=== PATIENT | male | born 1990 | race Caucasian/White ===

== ENCOUNTER 2024-03-20 16:19 | Emergency (ER) | payer OTHER, SELFPAY ==
[2024-03-20] MEDS ORDERED: Morphine 4 MG/ML VIAL ONE ×2 (16:34→18:12)
[2024-03-20] MEDS ORDERED: traMADol HCl 50 MG TAB ONE (16:34)
[2024-03-20] MEDS ORDERED: Boostrix 0.5 ML (Tdap) VIAL (>/=7 yrs of age) ONE (16:35)
[2024-03-20] MEDS ORDERED: Lidocaine 1% PF 5 ML VIAL ONE (17:02)
[2024-03-20] MEDS ORDERED: Amoxicillin/Potassium Clav 875 MG TAB ONE (18:12)
== END 2024-03-20 18:26 | disposition home or self-care (01) ==
LOC: BURERS 16:19
DX: S41.151A Open bite of right upper arm, initial encounter (principal); S41.111A Laceration without foreign body of right upper arm, initial encounter; F17.210 Nicotine dependence, cigarettes, uncomplicated; W54.0XXA Bitten by dog, initial encounter
CPT/HCPCS: 12032; 90715; 96374; 96376; J2270

== ENCOUNTER 2024-07-10 02:29 | Emergency (ER) | payer OTHER ==
[2024-07-10 02:51] LABS: #Basophils 0.1 thou/uL (0.0-0.2); #Eosinophils 0.2 thou/uL (0.0-0.7); #Monocytes 0.7 thou/uL (0.11-0.59); #Neutrophils 5.6 thou/uL (1.40-6.50); %Basophils 0.9 % (0.0-1.0); %Eosinophils 2.5 % (0.0-10.0); %Lymphocytes 23.1 % (21.0-51.0); %Monocytes 8.3 % (0.0-10.0); %Neutrophils 65.2 % (42.0-75.0); Hematocrit 37.8 % (42.0-52.0); Hemoglobin 12.7 g/dL (14.0-18.0); Mean Corpuscular HGB CONC 33.6 g/dL (32.0-36.0); Mean Corpuscular Hemoglobin 27.8 pg (27.0-31.0); Mean Corpuscular Volume 82.8 fl (78.0-98.0); Mean Platelet Volume 7.7 fL (7.4-10.4); Platelet Count 175 10x3/uL (130-400); RBC Distribution Width 10.2 % (11.5-14.5); Red Blood Cell (RBC) Count 4.56 mill/uL (4.70-6.10); White Blood Cell (WBC) Count 8.5 10x3/uL (4.8-10.8)
[2024-07-10 02:59] LABS: INR-International Normal Ratio 1.1; Prothrombin Time 13.8 sec (12.0-14.7)
[2024-07-10] MEDS ORDERED: Ketamine 50 MG/ML (10ML VIAL) ONE (03:04)
[2024-07-10 03:08] LABS: ALT (SGPT) 18 U/L (8-55); AST (SGOT) 20 U/L (5-34); Albumin 3.5 g/dL (3.5-5.0); Alkaline Phosphatase 60 U/L (40-110); Anion Gap 10 mmol/L (10-20); BUN (Urea Nitrogen) 23 mg/dL (8.9-20.6); Bilirubin, Total 0.3 mg/dL (0.2-1.2); Calc. Creatinine Clearance 0 mL/min (70-130); Calcium 8.4 mg/dL (7.8-10.44); Carbon Dioxide 26 mmol/L (22-29); Chloride 108 mmol/L (98-107); Estimated GFR 92; Globulin 2.5 g/dL (2.4-3.5); Glucose 118 mg/dL (70-105); Potassium 3.3 mmol/L (3.5-5.1); Sodium 141 mmol/L (136-145)
[2024-07-10] MEDS ORDERED: fentaNYL 50 mcg/mL 1 mL Vial ONE (03:19)
[2024-07-10] MEDS ORDERED: Lorazepam 2 MG/ML VIAL ONE (03:20)
[2024-07-10 03:28] LABS: Acetaminophen Less than 10 mcg/mL (Less than 10); Alcohol Less than 10.0 mg/dL (Less than 10); Salicylate Less than 8.0 mg/dL (Less than 8.0)
[2024-07-10 04:03] LABS: Amphetamine Detected (NotDetected); Barbiturates Screen Not Detected (NotDetected); Benzodiazepine Screen Not Detected (NotDetected); Cocaine Metabolite Screen Not Detected (NotDetected); Methadone Not Detected (NotDetected); Methamphetamine Detected (NotDetected); Opiate Screen Not Detected (NotDetected); Oxycodone Screen Not Detected (NotDetected); Phencyclidine (PCP) Not Detected (NotDetected); THC/Cannabinoid Screen Detected (NotDetected); Tricyclic Screen Not Detected (NotDetected)
[2024-07-10] MEDS ORDERED: Iopamidol 370 76% 100 ML VIAL ONE (12:03)
[2024-07-10] MEDS ORDERED: Rocuronium Bromide 10 MG/ML (10ML VIAL) ONE (12:05)
== END 2024-07-10 03:59 | disposition short-term general hospital (02) ==
LOC: BURERS 02:29
DX: S01.01XA Laceration without foreign body of scalp, initial encounter (principal); S01.21XA Laceration without foreign body of nose, initial encounter; R41.82 Altered mental status, unspecified; F17.210 Nicotine dependence, cigarettes, uncomplicated; X58.XXXA Exposure to other specified factors, initial encounter
CPT/HCPCS: 12002; 31500; 51702; 70450; 71045; 72125; 80053; 80306; 80307; 83605; 85025; 85610; 93005; 96361; 96374; 96375; J2060; J3010; Q9967

== ENCOUNTER 2025-05-18 14:03 | Emergency (ER) | payer OTHER ==
[2025-05-18] MEDS ORDERED: Lidocaine 1% PF 5 ML VIAL ONE (14:18)
[2025-05-18] MEDS ORDERED: Clindamycin 150 MG CAP ONE (14:28)
[2025-05-18] MEDS ORDERED: Ibuprofen 200 MG TAB ONE (14:29)
== END 2025-05-18 14:52 | disposition home or self-care (01) ==
LOC: BURERS 14:03
DX: L02.416 Cutaneous abscess of left lower limb (principal); F17.210 Nicotine dependence, cigarettes, uncomplicated

== ENCOUNTER 2025-05-27 13:58 | Emergency (ER) | payer SELFPAY | END 2025-05-27 14:39 | disposition home or self-care (01) | LOC: BURERS 13:58 | DX: K04.7 Periapical abscess without sinus (principal); K02.9 Dental caries, unspecified; F17.210 Nicotine dependence, cigarettes, uncomplicated | CPT/HCPCS: 99282 ==

== ENCOUNTER 2025-08-20 19:46 | Emergency (ER) | payer SELFPAY ==
[2025-08-20] MEDS ORDERED: Amoxicillin/Potassium Clav 875 MG TAB ONE (20:11)
[2025-08-20] MEDS ORDERED: Ketorolac Tromethamine 30 MG (1 mL) VIAL ONE (20:11)
== END 2025-08-20 20:31 | disposition home or self-care (01) ==
LOC: BURERS 19:46
DX: K08.89 Other specified disorders of teeth and supporting structures (principal); F17.210 Nicotine dependence, cigarettes, uncomplicated
CPT/HCPCS: 96372; 99282; J1885